=== PATIENT | male | born 1990 | race American Indian/Alaskan Native ===

== ENCOUNTER 2019-05-17 18:27 | Emergency (ER) | payer SELFPAY ==
[2019-05-17 20:36] LABS: Basophils % (Auto) 0.9 % (0.0-1.8); Eosinophils # (Auto) 0.1 K/mm3 (0.0-0.4); Eosinophils % (Auto) 2.2 % (0.0-4.3); Hematocrit 47.4 % (35.5-45.6); Hemoglobin 16.4 gm/dl (11.8-15.2); Lymphocytes # (Auto) 2.1 K/mm3 (1.2-5.4); Lymphocytes % (Auto) 37.7 % (13.4-35.0); Mean Corpuscular HGB Conc 35 % (32-34); Mean Corpuscular Volume 100 fl (84-94); Monocytes # (Auto) 0.3 K/mm3 (0.0-0.8); Monocytes % (Auto) 5.8 % (0.0-7.3); Platelet Count 225 K/mm3 (140-440); Red Blood Count 4.74 M/mm3 (3.65-5.03)
--- NOTE | 2019-05-17 20:38 | Emergency Department Report ---
ED Psych HPI - General Chief Complaint: Psych Stated Complaint: SI Time Seen by Provider: 05/17/19 19:34 Source: patient Mode of arrival: Stretcher - History of Present Illness Initial Comments: 28 yo M with no previous psychiatric diagnoses presents to ED with depression and suicidal ideation. Pt states he is depressed about his HIV positive status (currently taking antivirals), the fact that his girlfriend is , and also because he is having issues with his landlord. Pt states he is under lots of stress. States he has been depressed and having thoughts of suicide for several months now. Pt states today, he considered buying a gun and committing suicide, but he did not. Pt reports ETOH use, states drinks 2 beers daily. Denies any drug use currently. MD Complaint: suicidal ideation, feels depressed -: month(s) (3) Associated Psychiatric Symptoms: depression, suicidal ideation Quality: getting worse Improves With: none Worsens With: none Context: significant life stressor Associated Symptoms: denies other symptoms Treatments Prior to Arrival: none If Self Harm: has plan (plans to buy a gun and shoot himself) ED Review of Systems ROS: Stated complaint: SI Other details as noted in HPI Comment: All other systems reviewed and negative Psychiatric: depression, suicidal thoughts. denies: auditory hallucinations, visual hallucinations, homicidal thoughts ED Past Medical Hx - Past Medical History Previous Medical History?: Yes Hx HIV: Yes Additional medical history: Hep C - Social History Smoking Status: Current Every Day Smoker Substance Use Type: Marijuana ED Physical Exam - General Limitations: No Limitations General appearance: alert, in no apparent distress - Head Head exam: Present: atraumatic, normocephalic - Eye Eye exam: Present: normal appearance, PERRL, EOMI - ENT ENT exam: Present: mucous membranes moist - Neck Neck exam: Present: normal inspection - Respiratory Respiratory exam: Present: normal lung sounds bilaterally. Absent: respiratory distress - Cardiovascular Cardiovascular Exam: Present: regular rate, normal rhythm - GI/Abdominal GI/Abdominal exam: Absent: distended - Extremities Exam Extremities exam: Present: normal inspection - Neurological Exam Neurological exam: Present: alert, oriented X3, CN II-XII intact. Absent: motor sensory deficit - Psychiatric Psychiatric exam: Present: normal affect, normal mood - Skin Skin exam: Present: warm, dry, intact, normal color ED Course Vital Signs 05/17/19 05/17/19 18:58 20:26 Temperature 98.6 F 98.5 F Pulse Rate 64 51 L Respiratory 20 18 Rate Blood Pressure 125/74 114/58 [Right] O2 Sat by Pulse 99 100 Oximetry ED Medical Decision Making - Lab Data Result diagrams: 05/17/19 20:11 05/17/19 20:11 - Medical Decision Making 28 yo M presents to ED with suicidal ideation. Thought about buying a gun today, but changed his mind. No previous psychiatric diagnoses. Pt placed on a 1013. Labs are unremarkable. Pt is medically clear for mental health evaluati on. - Differential Diagnosis depression, SI Critical care attestation.: If time is entered above; I have spent that time in minutes in the direct care of this critically ill patient, excluding procedure time. ED Disposition Clinical Impression: Suicidal ideation Disposition: [id number]/TX-65 PSY HOSP/PSY UNIT Is pt being admited?: No Condition: Stable Referrals: JALIL BAXTER MD [Primary Care Provider] - 3-5 Days
[2019-05-17 20:54] LABS: Bilirubin,Urine NEG (Negative); Blood,Urine MOD (Negative); Color,Urine Straw (Yellow)
[2019-05-17 20:55] LABS: Urobilinogen,Urine < 2.0 mg/dL (<2.0)
[2019-05-17 21:00] LABS: Alanine Aminotransferase 56 units/L (7-56); Albumin 4.2 g/dL (3.9-5); BUN/Creatinine Ratio 8; Blood Urea Nitrogen 8 mg/dL (9-20); Calcium 9.2 mg/dL (8.4-10.2); Hemolysis Index 6
[2019-05-17 21:09] LABS: Bilirubin,Direct < 0.2 mg/dL (0-0.2)
[2019-05-17 21:25] LABS: Amphetamine Screen,Urine PRESUMPTIVE NEGATIVE; Benzodiazepines Screen,Urine PRESUMPTIVE NEGATIVE; Cannabinoid Screen,Urine PRESUMPTIVE NEGATIVE; Cocaine Screen,Urine PRESUMPTIVE NEGATIVE; Methadone Screen,Urine PRESUMPTIVE NEGATIVE; Opiate Screen,Urine PRESUMPTIVE NEGATIVE
[2019-05-18] MEDS ORDERED: NON-FORMULARY (Bictegrav/Emtricit/Tenofov Ala 1 EACH) PO SCH (16:00)
[2019-05-18] MEDS: NON-FORMULARY PO SCH (18:32)
--- NOTE | 2019-05-18 19:51 | Consultation ---
History of Present Illness - Reason for Consult Consult date: 05/18/19 Reason for consult: psychiatric evaluation - Chief Complaint Chief complaint: "I'm going through a lot." - History of Present Psychiatric Illness 28 yo M with no previous psychiatric diagnoses presents to ED with depression and suicidal ideation. He reports having multiple stressors and requests therapy. He denies homicidal ideation and denies psychotic symptoms. He states he is depressed about his HIV positive status and does not know who to trust with the information. He receives HIV treatment [facility]. He states he did not tell his girlfriend about having HIV and she is now . She is not speaking to him but communicates with his mother. He told the ER physician he has considered buying a gun and committing suicide, but he did not. He is on probation and attends aftercare classes. He is employed. He says he contracted HIV due to previous IV drug use. He reports ETOH use, states drinks 2 beers daily. Denies any drug use currently. UDS negative. ETOH less than 0.01. He denies alcohol withdrawal symptoms. Medications and Allergies Allergies Allergy/AdvReac Type Severity Reaction Status Date / Time No Known Allergies Allergy Verified 05/18/19 08:43 Home Medications Medication Instructions Recorded Confirmed Last Taken Type Bictegrav/Emtricit/Tenofov Ala 1 each PO DAILY 05/18/19 05/18/19 Unknown History [Biktarvy 50-200-25 mg (Nf)] Active Meds: Active Medications Miscellaneous Medication (Non-Formulary) 1 each PO DAILY SARAH Last Admin: 05/18/19 18:32 Dose: 1 each Documented by: Past psychiatric history - Past Medical History Past Medical History: HIV/AIDS (on Biktarvy) - past Psychiatric treatment and history psychiatric treatment history: none no previous suicide attempts - Social History Social history: IV drug use (history of heroin/cocaine), other (lives in a rooming house. He was in alf and is attending aftercare classes) Mental Status Exam - Vital signs Last Vital Signs Temp 97.7 F 05/18/19 18:00 Pulse 55 L 05/18/19 18:00 Resp 18 05/18/19 19:30 BP 111/69 05/18/19 18:00 Pulse Ox 99 05/18/19 18:00 - Exam Orientation: time, place, person Affect: depressed Mood: congruent with affect Thought content: other (suicidal ideation. no homicidal ideation) Thought Process: Intact Perceptions: none Speech: normal rate and pattern Concentration: focused Motor activity: normal Level of consciousness: alert Memory: Intact Sleep Symptoms: None Interaction: cooperative Results Result Diagrams: 05/17/19 20:11 05/17/19 20:11 Abnormal lab results 05/17/19 05/17/19 05/17/19 Range/Units 20:11 20:11 20:11 Hgb 16.4 H (11.8-15.2) gm/dl Hct 47.4 H (35.5-45.6) % MCV 100 H (84-94) fl MCH 35 H (28-32) pg MCHC 35 H (32-34) % RDW 13.0 L (13.2-15.2) % Lymph % (Auto) 37.7 H (13.4-35.0) % BUN 8 L (9-20) mg/dL Glucose 106 H (75-100) mg/dL Salicylates < 0.3 L (2.8-20.0) mg/dL Acetaminophen (10.0-30.0) ug/mL 05/17/19 Range/Units 20:11 Hgb (11.8-15.2) gm/dl Hct (35.5-45.6) % MCV (84-94) fl MCH (28-32) pg MCHC (32-34) % RDW (13.2-15.2) % Lymph % (Auto) (13.4-35.0) % BUN (9-20) mg/dL Glucose (75-100) mg/dL Salicylates (2.8-20.0) mg/dL Acetaminophen < 5.0 L (10.0-30.0) ug/mL All other labs normal. Assessment and Plan Assessment and plan: Impression: major depressive disorder, severe suicidal ideation history of IV substance use no active use UDS neg Recommendation: discussed starting an antidepressant. He was informed of the risks of untreated depression. He wants to think about it. He is open to counseling. dispo: inpatient psychiatric treatment will staff with Dr. Shin
[2019-05-19] MEDS: NON-FORMULARY PO SCH (10:15)
--- NOTE | 2019-05-19 14:04 | Progress Note ---
Subjective - Reason for Consult Consult date: 05/19/19 Reason for consult: Psychiatry Follow-up - Chief Complaint Chief complaint: "I've been doing some thinking" 28 y.o. AA male who presented to the ER for depression and SI's. Today the patient was calm and cooperative during the assessment. He stated that he have done a lot of thinking about his life since being in the ER reference his mental health. He is adamant that he want to live. He stated that have to find out how to deal with his HIV status "better." He stated that he is willing to attend a HIV support group when discharged. He denies SI/HI's and AVH's Mental Status Exam - Vital signs Last Vital Signs Temp 98.3 F 05/19/19 08:00 Pulse 56 L 05/19/19 08:00 Resp 13 05/19/19 08:00 BP 124/83 05/19/19 08:00 Pulse Ox 99 05/19/19 08:00 - Exam Narrative exam: MSE: Appearance: calm, cooperative Behavior: regular eye contact Speech: regular rate and tone Mood: "okay' Affect: congruent to mood Thought Process: logical Thought Content: denies SI/HI's and AVH's. Motor Activity: ambulatory Cognition: A/O x3 Insight: variable to fair Judgment: variable to fair Assessment and Plan Impression: MDD. Today the patient was calm and cooperative during the assessment. DDx: Adjustment DO Recommendation/Plan: Reevaluate the patient's 1013 in 24 hours. Discussed risks/benefits of SSRI's with the patient, he prefer talk therapy at this time. Dispo: If the patient's 1013 is rescinded in 24 hours, he can follow up with [facility] for outpatient psy services. Will staff with Dr Shawn Shin.
[2019-05-20 08:08] VITALS: BP 120/53
[2019-05-20] MEDS: NON-FORMULARY PO SCH (09:41)
--- NOTE | 2019-05-20 10:28 | Progress Note ---
Subjective - Reason for Consult Consult date: 05/20/19 Reason for consult: Psychiatry Follow-up - Chief Complaint Chief complaint: "I feel much better" 28 y.o. AA male who presented to the ER for depression and SI's. Today the patient was calm and cooperative during the assessment. He stated that he plan to follow up with [facility] for outpatient psy services. He is interested in attending a HIV support group. He denies SI/HI's and AVH's. Mental Status Exam - Vital signs Last Vital Signs Temp 97.7 F 05/20/19 07:00 Pulse 53 L 05/20/19 07:00 Resp 18 05/20/19 07:00 BP 120/53 05/20/19 07:00 Pulse Ox 97 05/20/19 07:00 - Exam Narrative exam: MSE: Appearance: calm, cooperative Behavior: regular eye contact Speech: regular rate and tone Mood: "okay' Affect: congruent to mood Thought Process: logical Thought Content: denies SI/HI's and AVH's. Motor Activity: ambulatory Cognition: A/O x3 Insight: appropriate Judgment: appropriate Assessment and Plan Impression: MDD. Today the patient was calm and cooperative during the assessment. The patient is no threat to self. DDx: Adjustment DO Recommendation/Plan: Rescind 1013. Discussed risks/benefits of SSRI's with the patient, he prefer talk therapy at this time. Dispo: The patient can follow up with [facility] for outpatient psy services. Will staff with Dr Shawn Shin.
== END 2019-05-20 11:15 ==
LOC: ED 18:27 → EEVIPCON 18:27 → ED 05-20 11:15
DX: F32.9 Major depressive disorder, single episode, unspecified (principal); F17.200 Nicotine dependence, unspecified, uncomplicated; F12.10 Cannabis abuse, uncomplicated
CPT/HCPCS: 36415; 80048; 80076; 80307; 80320; 81001; 85025; G0480